=== PATIENT | female | born 1960 ===

== ENCOUNTER → 2025-07-01 | Outpatient (REF) | payer OTHER ==
[2025-07-01 17:39] LABS: IRON (FE) 103 UG/DL (50-170); PERCENT SATURATION 28.1 % (13.2-45.0); PHOSPHORUS LEVEL 5.1 MG/DL (2.4-5.1)
[2025-07-01 17:42] LABS: VITAMIN B12 LEVEL 385 PG/ML (211-911)
[2025-07-01 17:45] LABS: TOTAL 25(OH) VITAMIN D 50.4 NG/ML (20.0-100.0)
== END ==
LOC: M LAB REF 16:59
DX: Z98.84 Bariatric surgery status (principal)